=== PATIENT | male | born 1980 | race Two or more races ===

== ENCOUNTER 2021-11-19 16:57 | Emergency (ER) | payer MEDICAID, SELFPAY ==
[2021-11-19 17:10] VITALS: BP 132/78; PULSE 95; RESP 20; TEMP 36.4; O2SAT 95; BMI 26.6
--- NOTE | 2021-11-19 17:48 | ED_ITS ---
HPI - Asthma General Chief Complaint: Asthma <DANIA Castro Last Filed: 11/19/21 18:00> Stated Complaint: Asthma <DANIA Castro - Last Filed: 11/19/21 18:00> Time Seen by Provider: 11/19/21 17:46 <DANIA Castro Last Filed: 11/19/21 18:00> Source: patient <DANIA Castro Last Filed: 11/19/21 18:00> Mode of arrival: ambulatory <DANIA Castro Last Filed: 11/19/21 18:00> Limitations: no limitations <DANIA Castro Last Filed: 11/19/21 18:00> History of Present Illness HPI Narrative: 41 y/o male with history of mild intermittent asthma presents to the ER with hopes of getting a new inhaler prescription. He states this time of year he usually has to use his inhaler for some mild wheezing. He denies any URI symptoms, SOB, LINN, fever, or respiratory difficulty. He ran out of his inhaler a long time ago and has not had a refill in some time. <DANIA Castro - Last Filed: 11/19/21 18:00> MD complaint: wheezing and other <DANIA Castro Last Filed: 11/19/21 18:00> Onset (ago): unknown <DANIA Castro - Last Filed: 11/19/21 18:00> Severity: mild <DANIA Castro Last Filed: 11/19/21 18:00> Context: ran out of meds <DANIA Castro Last Filed: 11/19/21 18:00> Associated symptoms: none <DANIA Castro Last Filed: 11/19/21 18:00> Asthma History: adult onset <DANIA Castro Last Filed: 11/19/21 18:00> Related Data Current Asthma Therapy: none <DANIA Castro Last Filed: 11/19/21 18:00> Home Medications: Previous Rx's Medication Instructions Recorded albuterol sulfate 90 mcg/actuation 2 inh INHALATION Q4-6H PRN #6.7 g 05/01/22 aerosol inhaler (Ventolin HFA) <DANIA Castro - Last Filed: 11/19/21 18:00> Allergies/Adverse Reactions: Allergies Allergy/AdvReac Type Severity Reaction Status Date / Time SEAFOOD Allergy Severe RASH DIFF Uncoded 04/07/20 16:45 BREATHING SWOLLEN NECK <DANIA Castro - Last Filed: 11/19/21 18:00> Review of Systems Review of Systems: Constitutional: No Fever, No Chills ENT/Mouth: No sore throat, No Rhinorrhea Cardiovascular: No Chest Pain, No SOB, No Orthopnea, No Edema Respiratory: No Cough, No Sputum, + Wheezing, No dyspnea Gastrointestinal: No Nausea, No Vomiting, No Diarrhea, No abdominal Pain Musculoskeletal: No Myalgias Neuro: No Dizziness, No Headache <DANIA Castro - Last Filed: 11/19/21 18:00> [facility] Past Medical History Medical History: Medical History (Updated 11/19/21 @ 17:48 by DANIA Castro) Asthma <DANIA Castro - Last Filed: 11/19/21 18:00> Physical Exam Vital Signs: Vital Signs: Last Vital Signs Temp 97.6 F 11/19/21 17:10 Pulse 95 11/19/21 17:10 Resp 20 11/19/21 17:10 BP 132/78 11/19/21 17:10 Pulse Ox 95 11/19/21 17:10 BMI result Body Mass Index 26.6 <DANIA Castro - Last Filed: 11/19/21 18:00> Appearance: Alert. Oriented X3. No acute distress. HEENT: normal inspection CVS: Normal heart rate and rhythm. Pulses normal. Respiratory: No respiratory distress. Speaking in complete sentences. Mild coaseness with end expiratory wheeze only in LLL, resolved with a cough. Skin: Skin warm and dry. Normal skin color. Normal skin turgor. No rashes. Extremities: left ankle with security anklet in place. Neuro: Oriented X 3. No motor deficit. No sensory deficit. <DANIA Castro - Last Filed: 11/19/21 18:00> Course Course Course Narrative: 41-year-old male with history of mild intermittent asthma presents to the ER for refill of his albuterol rescue inhaler. He reports this morning having some ?asthma problems and went to use his pump and couldn't find it. No SOB or respiratory distress, no cough, or URI symptoms. Exam is revealing for only some mild coarseness and end expiratory wheeze in the LLL only. No signs of symptoms of PNA or bronchitis. Stable for d/c home with PRN albuterol inhaler. <DANIA Castro - Last Filed: 11/19/21 18:00> Critical Care Time Critical Care Time Critical Care Time: No <DANIA Castro - Last Filed: 11/19/21 18:00> Discharge Plan Discharge Clinical Impression: Asthma <DANIA Castro - Last Filed: 11/19/21 18:00> Patient Disposition: Home, Self-Care <DANIA Castro - Last Filed: 11/19/21 18:00> Instructions: Asthma (DC) <DANIA Castro - Last Filed: 11/19/21 18:00> Additional Instructions: Follow-up with your doctor as needed. Use your inhaler as needed. <DANIA Castro - Last Filed: 11/19/21 18:00> Prescriptions: New albuterol sulfate [Ventolin HFA] 90 mcg/actuation HFA aerosol inhaler 2 inh inhalation Q4-6H PRN (Reason: shortness of breath or wheezing) Qty: 6.7 0RF <DANIA Castro - Last Filed: 11/19/21 18:00>
== END 2021-11-19 18:15 | disposition home or self-care (01) ==
LOC: HO.ED 18:03
PROVIDERS: Emergency Provider Emergency Medicine; PCP Internal Medicine
DX: J45.20 Mild intermittent asthma, uncomplicated (principal)
CPT/HCPCS: 99283